=== PATIENT | male | born 1985 | race Caucasian/White ===

== ENCOUNTER 2023-01-25 14:58 | Emergency (ER) | payer OTHER, SELFPAY ==
--- NOTE | ~2023-01-25 | XR_ITS ---
XR foot RT min 3V 01/25/2023 15:27 Indication: Plantar swelling between the first and second digits Procedure: 4 views right foot Comparison: No prior studies for comparison. Findings: There is a healed fracture deformity of the right first proximal phalanx with prominent jada john formation. Large amount of plantar soft tissue swelling overlying the first phalanx. No foreign b odies. Mild hallux valgus. Lisfranc joint is grossly intact. No acute fracture is identified. Impression: 1: Large amount of soft tissue swelling plantar aspect of the right foot overlying the first digit. 2: Healed right first proximal phalangeal fracture with callus formation. Reviewed, dictated and finalized at location B. ER ROLLER Impression: 1: Large amount of soft tissue swelling plantar aspect of the right foot overly ing the first digit. 2: Healed right first proximal phalangeal fracture with callus formation.
--- NOTE | 2023-01-25 14:59 | ED.LOWEXIN ---
HPI - Extremity Injury (Lower) General Chief Complaint: Extremity Injury, Lower Stated Complaint: Right foot injury Time Seen by Provider: 01/25/23 14:58 Source: patient Mode of arrival: ambulatory Limitations: no limitations History of Present Illness HPI Narrative: Clark is a 37-year-old male patient presenting to the today with complaints of right foot pain x3 days. Patient is a very poor historian however patient's boss believes that he may have stepped on a nail or a screw that has gone into his right foot. States area is painful to touch. Is concerned that there may be a retained foreign body in the right foot. Related Data Allergies Allergy/AdvReac Type Severity Reaction Status Date / Time No Known Allergies Allergy Verified 01/25/23 15:17 Review of Systems Review of Systems: Pertinent positives per HPI. Patient denies any fever, chills, rash, headache, visual changes, dizziness, cough, runny nose, sore throat, shortness of breath, chest pain, palpitations, nausea, vomiting, diarrhea, constipation, abdominal pain, or any urinary issues. PMFSH Comments At the time of my signature, I reviewed and agree with the nursing past medical, surgical, social, and family history. There is no relevant family history pertinent to the patient complaint. Exam Narrative: General: Well-developed, well nourished, in no apparent distress Head: Normocephalic, atraumatic. Cardio: Regular rate and rhythm, s1 and s2 normal, no murmur appreciated. Resp: Clear to auscultation bilaterally, no rhonchi, rales, wheezing or rubs. Musculoskeletal: No deformity, tender to palpation over the plantar aspect proximal of the right great toe around a hard callus (medial midfoot), area has very mild fluctuant with what appears to be purulent drainage build up under the skin redness noted around the callus and is very tender to palpation around the callus, grossly normal range of motion, muscle strength strong and equal, peripheral pulse strong, soft tissue swelling around the callused area, no cyanosis, normal gait and station Course Course Emergency Course: Portions of this record may have been created with voice recognition software. Level of Care: Express Care Visit Vital Signs Vital signs: Vital Signs Temperature 36.9 C 01/25/23 15:06 Pulse Rate 100 01/25/23 15:06 Respiratory Rate 16 01/25/23 15:06 Blood Pressure 151/90 H 01/25/23 15:06 Pulse Oximetry 98 01/25/23 15:06 Oxygen Delivery Room Air 01/25/23 15:06 Temperature 36.9 C 01/25/23 15:06 Pulse Rate 100 01/25/23 15:06 Respiratory Rate 16 01/25/23 15:06 Blood Pressure 151/90 H 01/25/23 15:06 Pulse Oximetry 98 01/25/23 15:06 Oxygen Delivery Room Air 01/25/23 15:06 Vital signs reviewed Procedures Abscess I/D foot: Date of Incision: 01/25/23 Side (if applicable): right Sedation/analgesia: none Local Anesthetic: none Amount of anesthesia used (mL): 0 Technique: needle aspiration Amount of fluid expressed (mL): 1.5 Irrigation: No Packing used?: none I&D Results: Pus Complications: other (None) Abcess I&D Additional Comments: Verbal consent obtained for drainage of skin infection (abscess)to the right medial plantar aspect of the mid foot. Area was cleansed with alcohol and an 18 gauge needle was used to aspirate yellowish green purulent drainage-approximately 1.5 mL withdrawn. Culture the drainage was obtained. Patient tolerated procedure fair MDM - Extremity Injury (Lower) MDM Narrative Medical decision making narrative: At the time of visit patient is resting comfortably on the exam table. Aspiration incision and drainage performed in the clinic today to the right midfoot. Rocephin 1 g IM was ordered however patient declined injection. Patient is afebrile and nontoxic appearing. I suspect he has a abscess/skin infection to the right plantar aspect
[2023-01-25 15:06] VITALS: BP 151/90; PULSE 100; RESP 16; TEMP 36.9; O2SAT 98
[2023-01-25] MEDS: IBUPROFEN 400 MG TABLET 800 MG PO (15:31)
== END 2023-01-25 16:00 | disposition home or self-care (01) ==
PROVIDERS: Emergency Provider Nurse Practitioner Family
DX: L02.611 Cutaneous abscess of right foot (principal); B95.62 Methicillin resistant Staphylococcus aureus infection as the cause of diseases classified elsewhere
CPT/HCPCS: 10160; 73630; 87070; 87075; 87147; 87181; 87186; 87205; 99213; A9270; G0463; J0696

== ENCOUNTER 2024-12-07 12:02 | Emergency (ER) | payer OTHER, SELFPAY ==
[2024-12-07 12:10] VITALS: BP 136/76; PULSE 65; RESP 16; TEMP 36.6; O2SAT 99
--- NOTE | 2024-12-07 13:03 | ED_ITS ---
HPI - Skin/Abscess/Foreign Bdy General Chief complaint: Skin/Abscess/Foreign Body Stated complaint: Left foot fb Time Seen by Provider: 12/07/24 12:55 Source: patient and RN notes reviewed Mode of arrival: ambulatory Limitations: no limitations History of Present Illness HPI narrative: 39-year-old male presents Express Care complaining of blister to left and pain. Patient says started approximately 2 days ago, patient said he started wearing you tennis shoes at work developed a blister there is left great toe on the pad of his foot. 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 Patient reports the blisters weeping and reports when redness and pain. Patient denies any swelling, fevers, eczema chills, nausea, vomiting, or any injuries to his foot. Patient has not tried anything [id number] to help with symptoms. Patient denies any significant past medical problems. Related Data Allergies Allergy/AdvReac Type Severity Reaction Status Date / Time No Known Allergies Allergy Verified 12/07/24 12:20 Review of Systems Review of Systems: CONSTITUTIONAL: Denies fever, chills, or sweats. EYES: Denies visual changes, redness, or discharge. ENT: Denies rhinorrhea, congestion, sore throat, or otalgia. CARDIOVASCULAR: Denies chest pain, palpitations, or edema. RESPIRATORY: Denies cough or dyspnea. GASTROINTESTINAL: Denies abdominal pain, nausea, vomiting, or diarrhea. GENITOURINARY: Denies dysuria or hematuria. SKIN: Denies rash or itching. Positive for blister, pain, redness, drainage MUSCULOSKELETAL: Denies back pain, joint pain, or myalgia. NEUROLOGIC: Denies headache, numbness, or weakness. PSYCHIATRIC: Denies anxiety or depression. All other systems reviewed are negative, except as documented in HPI. PMFSH Comments At the time of my signature, I reviewed and agree with the nursing past medical, surgical, social, and family history. There is no relevant family history pertinent to the patient complaint. Exam Narrative: GENERAL: This is a well-nourished, well-developed adult, in no apparent distress. They are non ill-appearing, nontoxic appearing. HEAD: normocephalic, atraumatic. EYES: Sclera clear/white. Conjunctiva normal. Vision is grossly intact. Extraocular movements intact EARS: External ears normal, Hearing grossly intact. NOSE: External nose normal THROAT: Mucous membranes moist, NECK: Neck supple, CARDIOVASCULAR: Regular rate and rhythm RESPIRATORY: Respiratory rate normal, respiratory effort nonlabored, no respiratory distress SKIN: warm, Dry, intact with no suspicious lesions or rash, good texture and turgor. NEURO: awake, alert, and oriented to person, place and time. There were no obvious focal neurologic abnormalities. EXTREMITIES: Left foot: There is callus formation present to the medial distal plantar surface of the forefoot near the right great toe. There is surrounding erythema and serous drainage present. Mild tenderness to palpation. No area of fluctuance, no induration. Capillary refill less than 2 seconds. Sensation intact. Neurovascular status intact. BACK: Nontender without deformity. No CVA tenderness. Course Course Emergency Course: Portions of this record may have been created with voice recognition software Level of Care: Express Care Visit Vital Signs Vital signs: Vital Signs Temperature 97.9 F 12/07/24 12:10 Pulse Rate 65 12/07/24 12:10 Respiratory Rate 16 12/07/24 12:10 Blood Pressure 136/76 12/07/24 12:10 Pulse Oximetry 99 12/07/24 12:10 Oxygen Delivery Room Air 12/07/24 12:10 Temperature 97.9 F 12/07/24 12:10 Pulse Rate 65 12/07/24 12:10 Respiratory Rate 16 12/07/24 12:10 Blood Pressure 136/76 12/07/24 12:10 Pulse Oximetry 99 12/07/24 12:10 Oxygen Delivery Room Air 12/07/24 12:10 Reviewed MDM - Skin/Abscess/Foreign Bdy MDM Narrative Medical decision making narrative: Patient has a blister to his left foot given the surrounding erythema will treat for cellulitis. Prescription cephalexin sent to patient's pharmacy. No abscess formation. Discussed physical exam findings. Advised supportive measures and signs/symptoms to go to the ER. Pt is appropriate for outpt treatment and f/u. Differential Diagnosis Differential diagnosis: Likely cellulitis and other (Callous, corn) Critical Care Time Critical Care Time Critical Care Time: No Discharge Plan Discharge Clinical Impression: Blister of foot with infection Qualifiers: Encounter type: initial encounter Laterality: left Qualified Code(s): S90.822A - Blister (nonthermal), left foot, initial encounter Patient Disposition: Home Condition: Stable Instructions: Antibiotic Form, Blister (ED) Additional Instructions: Take cephalexin as directed. Wash the foot daily with mild soap and water. Do not soak or scrub the wound. Please keep the wound dry and covered and apply non adherent dressing such as a Band-Aid or gauze especially while it is draining. Changes the dressing Daily. Dry your foot well after showering. Wear good supportive shoes. Follow-up with PCP in 3-5 days. If you developed worsening redness, swelling, pain, fevers, nausea, body aches, chills please go to the ER immediately. Patient Language: Botswanan Prescriptions: New cephalexin 500 mg capsule 500 mg PO Q6H 7 Days Qty: 28 0RF Follow-up/Referrals: PHYSICIAN,FOOD SERVICE UTILITY WORKER [Primary Care Provider, Internal Medicine] Time of Disposition: 12:59
== END 2024-12-07 13:05 | disposition home or self-care (01) ==
DX: S90.822A Blister (nonthermal), left foot, initial encounter (principal); L08.9 Local infection of the skin and subcutaneous tissue, unspecified; X58.XXXA Exposure to other specified factors, initial encounter
CPT/HCPCS: 99213; G0463

== ENCOUNTER 2024-12-16 17:53 | Emergency (ER) | payer OTHER, SELFPAY ==
--- NOTE | ~2024-12-16 | XR_ITS ---
XR hand RT min 3V INDICATION: smashed betwee roof and bundle of shingles 2 days . COMPARISON: None. FINDINGS: Frontal, lateral, and oblique views of the right hand demonstrate no acute fracture or dislocation. Chronic fracture deformity of the neck the fifth metacarpal is noted. IMPRESSION: Radiographic examination of the right hand demonstrates no acute fracture or dislocation. Reviewed, dictated and finalized at location S. IMPRESSION: Radiographic examination of the right hand demonstrates no acute fracture or di slocation.
--- OUTSIDE RECORDS SUMMARY | 2024-12-16 17:55 | XMS_ITS | Clinical Summary ---
Author Organization [facility] Address [address] [place] [address] Phone Care Team Providers Care Diplomatic Interpreter Name Role Phone Provider, Unknown Primary Care Provider Unavaila ble Allergies No known active allergies Medications ibuprofen (MOTRIN) 600 MG Tablet Take 1 Tab by mouth every 6 hours as needed for Pain. 20 Tab 0 10/08/2015 Active Social History Tobacco Use Types Packs/Day Years Used Date Smoking Tobacco: Never Sex and Gender Information Value Date Recorded Sex Assigned at Not on file Legal Sex Male 9:31 PM CDT Gender Identity Not on file Sexual Orientation Not on file Last Filed Vital Signs Vital Sign Reading Time Taken Comments Blood Pressure 152/97 10/08/2015 4:15 PM CDT Pulse 93 10/08/2015 4:15 PM CDT Temperature 36.5 C (97.7 F) 10/08/2015 4:15 PM CDT Respiratory Rate 22 10/08/2015 4:15 PM CDT Oxygen Saturation 97% 10/08/2015 4:15 PM CDT Inhaled Oxygen Concentration - - Weight 68 kg (150 lb) 10/08/2015 4:15 PM CDT Height 172.7 cm (5' 8) 10/08/2015 4:15 PM CDT Body Mass Index 22.81 10/08/2015 4:15 PM CDT Plan of Treatment Not on file Insurance [employer]ICA[employer] Care Teams Diplomatic Interpreter Relationship Specialty Start Date End Date Provider, Unknown UNKNOWN PCP - General 10/08/15
[2024-12-16 17:56] VITALS: BP 143/100; PULSE 73; RESP 20; TEMP 36.4; O2SAT 20
--- NOTE | 2024-12-16 18:04 | ED.UPPEXIN ---
HPI - Extremity Injury (Upper) General Chief Complaint: Extremity Injury, Upper Stated Complaint: right hand injury Time Seen by Provider: 12/16/24 18:04 Source: patient, family, RN notes reviewed and old records reviewed Mode of arrival: ambulatory Limitations: no limitations History of Present Illness HPI narrative: 39 year old male presents to [facility] care with complaints of smashing his right hand between between the roof and a bundle of shingles 2 days ago. Patient reports that since then he has had pain and swelling to the anterior aspect of his right hand and pain also to the right 5 th finger. Patient has been taking Ibuprofen and using ice to his right hand. Patient has noted swelling to the anterior aspect of his right hand,is able to move all fingers and thumb on own power, strong right radial pulse. MD complaint: injury to: right, hand and finger (little finger) Onset (ago): day(s) (2) Other injuries: none Handedness: right Place: outdoors Treatments prior to arrival: cold therapy and NSAIDS Related Data Home Medications ?Medication ?Instructions ?Recorded ?Confirmed ?Last Taken ?Type No Home Medications 12/16/24 Unknown History Allergies Allergy/AdvReac Type Severity Reaction Status Date / Time No Known Allergies Allergy Verified 12/16/24 18:03 Review of Systems Review of Systems: CONSTITUTIONAL: Denies fever, chills, or sweats. EYES: Denies visual changes, redness, or discharge. ENT: Denies rhinorrhea, congestion, sore throat, or otalgia. CARDIOVASCULAR: Denies chest pain, palpitations, or edema. RESPIRATORY: Denies cough or dyspnea. GASTROINTESTINAL: Denies abdominal pain, nausea, vomiting, or diarrhea. GENITOURINARY: Denies dysuria or hematuria. SKIN: Denies rash or itching. MUSCULOSKELETAL: Denies back pain, Reports pain to his right anterior hand and his 5th finger since smashing between roof and bundle of shingles., or myalgia. NEUROLOGIC: Denies headache, numbness, or weakness. PSYCHIATRIC: Denies anxiety or depression. All systems reviewed & are unremarkable except as noted in HPI and below PMFSH Comments At time of signature, agree with nursing past medical, surgical, social and family history. There is no relevant family history pertinent to the presenting complaint Exam Narrative: GENERAL: Well-appearing, well-nourished, and in no acute distress. HEAD: Normocephalic, atraumatic. EYES: PERRLA and EOMI. ENT: Nares clear, no rhinorrhea or epistaxis. Mucous membranes moist. NECK: Supple. no lymphadenopathy CHEST: Clear to auscultation. No respiratory distress. SAO2 98% on room air HEART: Regular rate and rhythm. No murmur heard. Normal peripheral pulses. ABDOMEN: Soft, nontender, nondistended, normal active bowel sounds. EXTREMITIES: Normal range of motion. Pain and swelling to the anterior right hand with discomfort also to the 5th finger, Patient is able to move all fingers on own power, sensation and circulation intact to his right hand. nail beds shantell briskly. SKIN: Warm, dry, no rash. NEURO: No focal deficits. Alert and oriented x3. Course Course Emergency Course: Patient is aware of diagnosis, understands and agrees to treatment plan.? Anticipatory guidance given.? Patient agrees to follow-up as directed and is aware of reasons to seek care at the emergency department. Portions of this record may have been created with voice recognition software Level of Care: Express Care Visit Vital Signs Vital signs: Vital Signs Temperature 36.4 C 12/16/24 17:56 Pulse Rate 73 12/16/24 17:56 Respiratory Rate 20 12/16/24 17:56 Blood Pressure 143/100 H 12/16/24 17:56 Pulse Oximetry 20 L 12/16/24 17:56 Temperature 36.4 C 12/16/24 17:56 Pulse Rate 73 12/16/24 17:56 Respiratory Rate 20 12/16/24 17:56 Blood Pressure 143/100 H 12/16/24 17:56 Pulse Oximetry 20 L 12/16/24 17:56 Reviewed MDM - Extremity Injury (Upper) Differential Diagnosis Differential diagnosis: Likely fracture of hand and other (pain to right hand, contusion of right hand) Medical Records Attestation: I reviewed the patient's medical records. Imaging Data Attestation: I personally reviewed and interpreted this imaging study as follows: My impression: no acute fracture or dislocation of right hand,chronic fracture deformity of right 5th metacarpal neck Radiologist's impression: [facility] [address] [place] [address] XRay Report Signed Patient: Clark Chapman : 1985 MR#: [id number] Age: 39 Acct:[id number] Loc: [facility] ADM Date: 12/16/[address]: Ordering Physician: Noelle Cunha APRN Date of Service: 12/16/24 Procedure(s): XR hand RT min 3V Accession Number(s): [id number] cc: COUNTER STACKER PHYSICIAN; Noelle Cunha APRN~ XR hand RT min 3V INDICATION: smashed betwee roof and bundle of shingles 2 days . COMPARISON: None. FINDINGS: Frontal, lateral, and oblique views of the right hand demonstrate no acute fracture or dislocation. Chronic fracture deformity of the neck the fifth metacarpal is noted. IMPRESSION: Radiographic examination of the right hand demonstrates no acute fracture or dislocation. Reviewed, dictated and finalized at location S. Please be advised this is a medical document. It is intended for [id number] communication. It is written in medical language and may contain unfamiliar abbreviations or verbiage. Medical documents are intended to carry relevant information, facts as evident, and the clinical opinion of the practitioner at the time of the encounter. This report may have been done utilizing a voice recognition system. Attempts have been made to correct errors. However, there may be uncorrected grammatical, spelling, and recognition errors present. The file time of this note does not necessarily represent the time of service. Dictated By: Liam Reyes MD 12/16/24 1829 Signed By: <Electronically signed by Liam Reyes MD in OV> Critical Care Time Critical Care Time Critical Care Time: No Discharge Plan Discharge Clinical Impression: Hand pain, right Patient Disposition: Home Condition: Stable Instructions: Arthralgia (ED) Additional Instructions: Elastic wrap or orthopedic splint as directed for comfort for the next 5-7 days Tylenol for lesser pain Ibuprofen regularly for the next 2-3 days for the inflammation Follow-up with orthopedic surgeon if any further complaints or concerns Follow-up with PCP if further problems or concerns Ice to the area 20-30 minutes 4-6 times a day Elevate above heart If your symptoms persist, change or worsen significantly before you can contact your personal physician then please, without delay, go to the emergency department for further evaluation. Follow-up with PCP in 7-10 days or sooner if needed Follow up with PCP soon in regards to your blood pressure which is elevated above threshold for referral. Blood pressure above 120/80 may indicate pre-hypertension.143/100 Patient Language: Kinyarwanda Prescriptions: No Action No Home Medications Follow-up/Referrals: PHYSICIAN,COUNTER STACKER [Primary Care Provider, Internal Medicine] Time of Disposition: 19:12 Quality [place] Coma Scale Eyes: Open Verbal: Oriented and Alert Motor: Follows Commands [place] Coma Total Score: 15
== END 2024-12-16 19:20 | disposition home or self-care (01) ==
PROVIDERS: Emergency Provider Registered Nurse
DX: M79.641 Pain in right hand (principal)
CPT/HCPCS: 73130; 99213; G0463